=== PATIENT | female | born 2000 | race Caucasian/White ===

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

== ENCOUNTER 2022-07-31 10:05 | Emergency (ER) | payer MEDICAID ==
[~2022-07-31] VITALS: Ht 162.6 cm; Wt 50.0 kg
[2022-07-31 10:13] VITALS: BP 117/76
[2022-07-31] MEDS ORDERED: DIPHENHYDRAMINE 25MG CAPSULE PO ONE (10:30)
[2022-07-31] MEDS ORDERED: ACETAMINOPHEN 325MG TABLET PO ONE (10:30)
[2022-07-31] MEDS ORDERED: DIPH25CA83 MT (12:24)
== END 2022-07-31 12:30 | disposition home or self-care (01) ==
LOC: ER 10:05
DX: T78.40XA Allergy, unspecified, initial encounter (principal); X58.XXXA Exposure to other specified factors, initial encounter
CPT/HCPCS: 99282; Q0163

== ENCOUNTER 2025-11-15 21:55 | Emergency (ER) | payer MEDICAID, OTHER ==
[~2025-11-15] VITALS: Ht 165.1 cm; Wt 54.0 kg
[~2025-11-15 21:55] MED LIST: DIPH25CA83 MT
[2025-11-15 22:11] VITALS: TEMP 36.9; O2SAT 99
[2025-11-16] MEDS: LIDOCAINE 5% PATCH TOP SCH (00:24)
[2025-11-16] MEDS ORDERED: LIDO-53 TP (00:50)
[2025-11-16 01:08] VITALS: BP 105/72; PULSE 93; RESP 19; O2SAT 98
== END 2025-11-16 01:16 | disposition home or self-care (01) ==
LOC: ER 21:55
DX: R07.89 Other chest pain (principal); W11.XXXA Fall on and from ladder, initial encounter; Y93.89 Activity, other specified; Y92.89 Other specified places as the place of occurrence of the external cause; Y99.8 Other external cause status
CPT/HCPCS: 71111; 81025; 99283